=== PATIENT | male | born 1975 | race Caucasian/White ===

== ENCOUNTER 2018-08-23 09:10 | Day surgery (SDC) | payer MEDICAID ==
[2018-08-23] VITALS (9 sets, daily range): BP systolic 94–127; BP diastolic 51–74
[~2018-08-23] VITALS: Ht 182.9 cm; Wt 136.3 kg
[~2018-08-23 09:10] MED LIST: BENZ-16 PO; CYCL-35 PO; HYDR-3965 PO; METH-360 PO; PANT40TA39 PO; PROM25TA14 PO
[2018-08-23] MEDS ORDERED: normal saline 1,000 ML IV SCH (09:40)
[2018-08-23] MEDS ORDERED: diphenhydrAMINE 25mg capsule PO PRN (09:40)
[2018-08-23] MEDS ORDERED: sodium bicarbonate (8.4%) inj. 150 ML in dextrose 5%-water 1,000 ML IV ONE ×2 (09:40→09:51)
[2018-08-23] MEDS ORDERED: midazolam 2 mg/2 ml injection ONE ×2 (10:13→10:44)
[2018-08-23] MEDS ORDERED: iohexol 350 MG/ML 50ML vial IV ONE (10:14)
[2018-08-23] MEDS ORDERED: iohexol 350MG/ML 100ml bottle IV ONE (10:14)
[2018-08-23] MEDS ORDERED: LIDOcaine 1% (10mg/ml)w/preservative injection 20ml MDV ONE (10:14)
[2018-08-23] MEDS ORDERED: fentaNYL/PF 50MCG/1 ML 2ML syringe ONE (10:14)
[2018-08-23 10:25] LABS: BASOPHILS % (AUTO) 0.8 % (0-1); EOSINOPHILS # (AUTO) 0.1 X10'3 (0-0.9); EOSINOPHILS % (AUTO) 2.3 % (0-6); HEMATOCRIT 40.3 % (42.0-52.0); HEMOGLOBIN 13.2 g/dl (14.0-17.9); LYMPHOCYTES # (AUTO) 1.7 X10'3 (1.1-4.8); LYMPHOCYTES % (AUTO) 29.4 % (21-51); MEAN CORPUSCULAR HEMOGLOBIN 29.7 PG (27.0-31.0); MEAN CORPUSCULAR HGB CONC 32.8 g/dL (33.0-36.5); MEAN CORPUSCULAR VOLUME 90.5 FL (78-98); MEAN PLATELET VOLUME 8.2 FL (7.4-10.4); MONOCYTES # (AUTO) 0.6 X10'3 (0-0.9); MONOCYTES % (AUTO) 10.3 % (2-12); NEUTROPHILS # (AUTO) 3.3 X10'3 (1.8-7.7); NEUTROPHILS % (AUTO) 57.2 % (42-75); PLATELET COUNT 289 X10'3 (140-440); RED BLOOD COUNT 4.45 X10'6 (4.70-6.10); RED CELL DISTRIBUTION WIDTH 13.3 % (11.5-14.5); WHITE BLOOD COUNT 5.7 X10'3 (4.5-11.0)
[2018-08-23] MEDS ORDERED: METF500T PO (10:39)
[2018-08-23] MEDS ORDERED: LISI-604 PO (10:40)
[2018-08-23] MEDS ORDERED: ALBU8HFA PO (10:41)
[2018-08-23] MEDS ORDERED: FLUT1BLS4 (10:42)
[2018-08-23] MEDS ORDERED: PIOG30TA10 PO (10:42)
[2018-08-23 10:43] LABS: ALBUMIN 3.8 G/DL (3.4-5.0); ANION GAP 7 (8-16); BLOOD UREA NITROGEN 14 MG/DL (7-18); BUN/CREATININE RATIO 13.2 (5.4-32.0); CALCIUM 9.3 MG/DL (8.5-10.1); CHLORIDE 105 MMOL/L (99-107); CREATININE 1.06 MG/DL (0.60-1.10); GLUCOSE 163 MG/DL (70-104); MAGNESIUM 1.9 MG/DL (1.5-2.4); POTASSIUM 4.4 MMOL/L (3.5-5.1); SODIUM 140 MMOL/L (135-145); eGFR 76 ML/MIN
[2018-08-23] MEDS ORDERED: nitroGLYCERIN-Tridil 50MG/D5W 250 ML IV ONE (10:43)
[2018-08-23] MEDS ORDERED: verapamil 2.5 mg/ml inj IV ONE (10:44)
[2018-08-23] MEDS ORDERED: proCHLORperazine 10 MG/2 ml inj ONE (10:44)
[2018-08-23] MEDS ORDERED: heparin 1,000unit/ml 10ml vial 10 ML ONE (10:44)
[2018-08-23 10:50] LABS: PROTHROMBIN TIME 10.2 SECONDS (9.0-12.0)
== END 2018-08-23 14:30 | disposition home or self-care (01) ==
LOC: SSTAY O 09:10
PROVIDERS: ATTEND Internal Medicine Cardiovascular Disease
DX: I20.9 Angina pectoris, unspecified (principal); E11.9 Type 2 diabetes mellitus without complications; Z87.891 Personal history of nicotine dependence
CPT/HCPCS: 36415; 80048; 83735; 85025; 85610; 93005; 93458; 99152; 99153; J0780; J1644; J2001; J2250; J3010; J7030; Q9967; A4620; C1769; J3490